=== PATIENT | male | born 2000 | race Caucasian/White ===

== ENCOUNTER 2024-01-31 17:44 | Emergency (ER) | payer SELFPAY ==
[2024-01-31] MEDS: Bacitracin Oint 1 GM U/D Packet TOP ONE (18:42)
[2024-01-31] MEDS: Lidocaine 1% with EPINEPHrine 1:100,000 20 ML MDV INJECT ONE (18:42)
== END 2024-01-31 18:52 | disposition home or self-care (01) ==
LOC: JP.ED 17:44
DX: S61.411A Laceration without foreign body of right hand, initial encounter (principal); Z86.16 Personal history of COVID-19; F17.210 Nicotine dependence, cigarettes, uncomplicated; W26.0XXA Contact with knife, initial encounter
CPT/HCPCS: 12002; 99282; 99283